=== PATIENT | female | born 1940 | race Caucasian/White ===

== ENCOUNTER 2019-08-03 14:07 | Emergency (ER) | payer MEDICARE ==
[~2019-08-03] VITALS: Ht 147.3 cm; Wt 59.0 kg
--- OUTSIDE RECORDS SUMMARY | 2019-08-03 14:10 | XMS REPORT | Continuity of Care Document ---
Author Author [facility] Organization [facility] Address [address] [place] [address] Care Team Providers Care [employer] Name Role Phone ELYSSA MARRERO Admphys ELYSSA MARRERO Attphys Allergies and Intolerances Code Code System Allergy Substance Type Reaction Severity Start Date End Date Status 067275 RXNorm Effexor Drug allergy (disorder) Vomit, Sick Severe Active 2670 RXNorm Codeine Drug allergy (disorder) Unknown Active Medications RxNorm Medication Dose Route Instructions Start Date End Date Status 635874 Acetaminophen 325 MG / Hydrocodone Bitartrate 10 MG Oral Tablet 1 tab oral orally every 6 hours as needed. Active ACETAMINOPHEN TABLET 650 MG ORAL BY MOUTH EVERY 4 HOURS NEEDED as needed. (ADULT MAXIMUM ACETAMINOPHEN DOSE PER 24 HOURS=4 GRAMS PAIN RATED 1-2, TEMP GREATER THAN 101F, HEADACHE DO NOT ADMINISTER WITHIN 4 HOURS OF HYDROCODONE/A PAP) 11/30/2018 Active 367482 Allopurinol 300 MG Oral Tablet 300 mg oral orally every day Active 458202 Amlodipine 10 MG Oral Tablet 10 MG ORAL BY MOUTH ONCE A DAY (DOCUMENT B/P AVOID GRAPEFRUIT PRODUCTS) Active 969290 aripiprazole 2 MG Oral Tablet 2 mg oral orally every day Active [facility] Gas Relief 80 milligrams oral orally 3 times per day as needed. Active Cyclobenzaprine Oral 10 mg oral orally every 12 hours as needed. Active 953351 Magnesium Oxide 400 MG Oral Tablet 800 MG ORAL BY MOUTH ONCE A DAY (Hold if with diarrhea) Active 334734 Metronidazole 500 MG Oral Tablet 500 mg oral orally 3 times per day Active 762214 Nystatin 564073 UNT/ML Topical Cream 1 applic topical topically 3 times per day Active ONDANSETRON ODT 4 MG ORAL BY MOUTH EVERY 6 HOURS NEEDED as needed. (FOR NAUSEA AND VOMITING) Active 766557 pantoprazole 40 MG Delayed Release Oral Tablet 40 MG ORAL BY MOUTH ONCE A DAY Active ProAir HFA Inhaler 90 mcg/actuation 1 puff inhalation inhaled every 4 to 6 hours as needed. 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 505782871 SNOMED-CT Malignant neoplasm of uterus 1967 Active 16680800 SNOMED-CT Hypertensive disorder U Active 409574646 SNOMED-CT Gastroesophageal reflux disease U Active 8514328 SNOMED-CT Arthritis U Active 20974097 SNOMED-CT Depressive disorder U Active 88408487 SNOMED-CT Anxiety U Active BACK PROBLEMS U Active Procedures Code Code System Procedure Date [address] Hysterectomy 1971 RIGHT ARM SURGERY U XR WRIST COMP MIN 3 VWS 07/11/2019 Results Radiology Results Order: XR WRIST COMP MIN 3 VWS* Exam Completion Date:07/11/2019 13:18 Procedure: XR WRIST COMP MIN 3 VWS , left Order Date: 07/11/2019 1:18 PM Ordering Provider: KAREN AMADOR Clinical Indication: [id number]: Pain Comparison: None Findings: No fracture, focal osseous destructi on, or malalignment. Moderate triscaphe and thumb CMC joint space narrowing and osteophyte formation is present. Soft tissues are unremarkable. IMPRE SSION: No acute osseous abnormality. 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 This final report was electronically signed by Dr Kimberly Sesay MD 07/11/2019 1:48 PM Dictated By: LARISA SESAY Date: 020 13:48 Social History Code Code System Social History Observation Description Dates Observed 452447065 SNOMED CT Current Smoking Status Unknown if ever smoked UNK AdministrativeGender Sex Assigned At Unknown Vital Signs Code Code System Vitals Value Date 8310-5 LOINC Body Temperature 98.1 [degF] 07/11/2019 8865-8 LOINC Pulse Rate 90 {beats}/min 07/11/2019 9279-1 LOINC Respiratory Rate 20 /min 07/11/2019 84397-4 LOINC O2% BldC Oximetry 97 % 07/11/2019 8480-6 LOINC BP Systolic 160 mm[Hg] 07/11/2019 8462-4 LOINC BP Diastolic 88 mm[Hg] 07/11/2019 8302-2 LOINC Height 65 [in_i] 07/11/2019 26373-2 LOINC Weight 58.96 kg 07/11/2019 3140-1 LOINC Body surface area Derived from formula 1.65 m2 07/11/2019 92362-2 LOINC BMI (Body Mass Index) 21.6 kg/m2 07/11/2019 Goals Section * No data in the system Health Concerns * No data in the system Encounter Diagnosis Date Code Code System Diagnosis Status S63.522A ICD10 SPRAIN RADIOCARPAL JNT LT WRIST INT Active Advance Directives Patient does NOT have Living Will Directive Type Effective Date [employer] Maintenance Chief Notes Supporting Document Name Address Phone No Directive Type specified 07/11/2019 12:23:12 PM Not Specified Not Specified Not Specified None No Patient does NOT have Living Will Directive Type Effective Date Airport Maintenance Chief Notes Supporting Document Name Address Phone No Directive Type specified 11/30/2018 5:24:56 PM Not Specified Not Specified Not Specified None No PT HAS NEITHER Directive Type Effective Date Airport Maintenance Chief Notes Supporting Document Name Address Phone No Directive Type specified 08/02/2012 9:27:07 PM Not Specified Not Specified Not Specified None No Family History * Family History Unknown Functional Status * No data in the system Immunizations Vaccine Code Code System Vaccine Name Date Status 09 CVX tetanus and diphtheria toxoids, adsorbed for adult use Completed Medical Equipment * No data in the system Mental Status * No data in the system Assessment and Plan Assessments * No data in the system Plan Of Treatment * No data in the system Pending Tests * No data in the system Hospital Discharge Instructions * Discharge Instructions 2* Discharge Diagnosis* Sprained wrist * Important Information* Consult your physician or return to the Emergency Department immediately if worse, if not better as expected, or if any problems arise. * Please understand that you have received care only on an emergency basis. If your condition does not improve, you should call your personal physician for follow-up care. If you do not have a physician, you may call the referred physician listed. * If you have questions about your care or these discharge instructions, you may call the Emergency Department. Please take your discharge paperwork with you to any follow-up appointments. * Follow-Up With:* Primary Care Physician * Orthopedics * Patient Teaching* Patient education provided * Pain Control * Activities Reason for Visit Reason for Visit Upper extremity injury
--- OUTSIDE RECORDS SUMMARY | 2019-08-03 14:10 | XMS REPORT ---
Author Author [facility] Address Unknown Phone Unavailable Care Team Providers Care Psychological Operations Officer Name Role Phone NESTOR MARRERO Unavailable Unavailable TAYLER SEGURA Unavailable Unavailable NABIL DUKES Unavailable Unavailable Problems This patient has no known problems. Allergies, Adverse Reactions, Alerts This patient has no known allergies or adverse reactions. Medications This patient has no known medications. Results Test Description Test Time Test Comments Text Results Atomic Results Result Comments XR WRIST COMP MIN 3 VWS 2019-07-11 13:55:06 Procedure: XR WRIST COMP MIN 3 VWS , leftOrder Date: 07/11/2019 1:18 PMOrdering Provider: KAREN DO HAREClinical Indication: [id number]: PainComparison: NoneFindings:No fracture, focal osseous destruction, or malalignment. Moderate triscaphe andthumb CMC joint space narrowing and osteophyte formation is present. 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.This final report was electronically signed by Dr Joseline Sesay MD 07/11/20191:48 PMDictated By: AZUCENA SESAYKDate: 07/11/2019 13:48 MAGNESIUM 2018-12-09 07:40:00 Magnesium (test code=MG) 1.3 mg/dl 1.6-2.6 add to earlier [id number] 05:15:00* Test Item Value Reference Range Comments Sodium (test code=NA) 142 mmol/l 137-145 Potassium (test code=K) 3.0 mmol/l 3.5-5.1 Chloride (test code=CL) 106 mmol/l 98-107 Calcium (test code=CALC) 7.2 mg/dl 8.5-10.1 CO2 (test code=CO2) 29 mmol/l 21-32 Glucose (test code=GLU) 144 mg/dl 74-106 BUN (test code=BUN) 7.0 mg/dl 7.0-18.0 Creatinine (test code=CREA) 1.4 mg/dl 0.5-1.3 T Protein (test code=TP) 6.5 gm/dl 6.4-8.2 Albumin (test code=ALB) 3.1 gm/dl 3.4-5.0 A/G Ratio (test code=AGRAT) 0.9 % 1.1-2.2 AST (SGOT) (test code=AST) 15 U/L 15-37 ALT (SGPT) (test code=ALT) 13 U/L 13-61 Alkaline Phos (test code=ALKP) 53 U/L 45-117 Total Bilirubin (test code=TBIL) 0.4 mg/dl 0.2-1.0 Globulin (test code=GLOBU) 3.4 gm/dl 2.3-3.5 Calcium, Corrected (test code=CALCCORR) 7.9 mg/dl 8.4-10.2 Various formulas exist for corrected serum calcium results, each yielding different values. This corrected result was based on the formula: Corrected Calcium=SerumCalcium + [0.8 * ( 4 - SerumAlbumin)] EGFR if (test code=EGFRAA) 47 mL/min/1.73m\\S\\2 EGFR if Non- (test code=EGFRNA) 39 mL/min/1.73m\\S\\2 Estimated Glomerular Filtration Rate (eGFR) Reference Intervals Decision Points for 18 years and older and average body mass: >=60 Does not exclude kidney disease. 30 - 59 Suggests moderate chronic kidney disease and indicates the need for further investigation including assessment of proteinuria and cardiovascular factors. < 30 Usually indicates a need for referral for assessment and management of chronic kidney failure. [id number] 05:51:00* Test Item Value Reference Range Comments Lipase (test code=LIPA) 541 U/L 73-393 [id number] 05:51:00* Test Item Value Reference Range Comments Sodium (test code=NA) 140 mmol/l 137-145 Potassium (test code=K) 3.6 mmol/l 3.5-5.1 Chloride (test code=CL) 105 mmol/l 98-107 Calcium (test code=CALC) 6.7 mg/dl 8.5-10.1 CO2 (test code=CO2) 29 mmol/l 21-32 Glucose (test code=GLU) 121 mg/dl 74-106 BUN (test code=BUN) 6.0 mg/dl 7.0-18.0 Creatinine (test code=CREA) 1.5 mg/dl 0.5-1.3 EGFR if (test code=EGFRAA) 43 mL/min/1.73m\\S\\2 EGFR if Non- (test code=EGFRNA) 36 mL/min/1.73m\\S\\2 Estimated Glomerular Filtration Rate (eGFR) Reference Intervals Decision Points for 18 years and older and average body mass: >=60 Does not exclude kidney disease. 30 - 59 Suggests moderate chronic kidney disease and indicates the need for further investigation including assessment of proteinuria and cardiovascular factors. < 30 Usually indicates a need for referral for assessment and management of chronic kidney failure. Critical values were called to Baylee by [id number] on 12/08/18 05:51 CDT. Resu lts were not read back.[id number] 16:04:00* Test Item Value Reference Range Comments Sodium (test code=NA) 143 mmol/l 137-145 Potassium (test code=K) 3.7 mmol/l 3.5-5.1 Chloride (test code=CL) 106 mmol/l 98-107 Calcium (test code=CALC) 6.7 mg/dl 8.5-10.1 CO2 (test code=CO2) 31 mmol/l 21-32 Glucose (test code=GLU) 111 mg/dl 74-106 BUN (test code=BUN) 8.0 mg/dl 7.0-18.0 Creatinine (test code=CREA) 1.7 mg/dl 0.5-1.3 EGFR if (test code=EGFRAA) 38 mL/min/1.73m\\S\\2 EGFR if Non- (test code=EGFRNA) 31 mL/min/1.73m\\S\\2 Estimated Glomerular Filtration Rate (eGFR) Reference Intervals Decision Points for 18 years and older and average body mass: >=60 Does not exclude kidney disease. 30 - 59 Suggests moderate chronic kidney disease and indicates the need for further investigation including assessment of proteinuria and cardiovascular factors. < 30 Usually indicates a need for referral for assessment and management of chronic kidney failure. Critical values were called to ASHLEY MARTINEZ RN K4 by [id number] on 12/07/18 16:0 4 CDT. Results were read back by ASHLEY MARTINEZ RN K4.[id number] 15:55:00* Test Item Value Reference Range Comments Magnesium (test code=MG) 0.9 mg/dl 1.6-2.6 [id number] 05:53:00* Test Item Value Reference Range Comments Sodium (test code=NA) 145 mmol/l 137-145 Potassium (test code=K) 2.7 mmol/l 3.5-5.1 Chloride (test code=CL) 105 mmol/l 98-107 Calcium (test code=CALC) 6.6 mg/dl 8.5-10.1 CO2 (test code=CO2) 31 mmol/l 21-32 Glucose (test code=GLU) 122 mg/dl 74-106 BUN (test code=BUN) 9.0 mg/dl 7.0-18.0 Creatinine (test code=CREA) 1.8 mg/dl 0.5-1.3 T Protein (test code=TP) 5.9 gm/dl 6.4-8.2 Albumin (test code=ALB) 3.1 gm/dl 3.4-5.0 A/G Ratio (test code=AGRAT) 1.1 % 1.1-2.2 AST (SGOT) (test code=AST) 15 U/L 15-37 ALT (SGPT) (test code=ALT) 12 U/L 13-61 Alkaline Phos (test code=ALKP) 45 U/L 45-117 Total Bilirubin (test code=TBIL) 0.3 mg/dl 0.2-1.0 Globulin (test code=GLOBU) 2.8 gm/dl 2.3-3.5 Calcium, Corrected (test code=CALCCORR) 7.3 mg/dl 8.4-10.2 Various formulas exist for corrected serum calcium results, each yielding different values. This corrected result was based on the formula: Corrected Calcium=SerumCalcium + [0.8 * ( 4 - SerumAlbumin)] EGFR if (test code=EGFRAA) 35 mL/min/1.73m\\S\\2 EGFR if Non- (test code=EGFRNA) 29 mL/min/1.73m\\S\\2 Estimated Glomerular Filtration Rate (eGFR) Reference Intervals Decision Points for 18 years and older and average body mass: >=60 Does not exclude kidney disease. 30 - 59 Suggests moderate chronic kidney disease and indicates the need for further investigation including assessment of proteinuria and cardiovascular factors. < 30 Usually indicates a need for referral for assessment and management of chronic kidney failure. Critical values were called to CLAY Stoddard/K4 by [id number] on 12/07/18 05:53 CDT. Resul ts were not read back.[id number] 05:49:00* Test Item Value Reference Range Comments Lipase (test code=LIPA) 660 U/L 73-393 [id number] 20:07:00* Test Item Value Reference Range Comments Sodium (test code=NA) 142 mmol/l 137-145 Potassium (test code=K) 3.0 mmol/l 3.5-5.1 Chloride (test code=CL) 104 mmol/l 98-107 Calcium (test code=CALC) 6.0 mg/dl 8.5-10.1 CO2 (test code=CO2) 31 mmol/l 21-32 Glucose (test code=GLU) 110 mg/dl 74-106 BUN (test code=BUN) 10.0 mg/dl 7.0-18.0 Creatinine (test code=CREA) 2.0 mg/dl 0.5-1.3 T Protein (test code=TP) 5.9 gm/dl 6.4-8.2 Albumin (test code=ALB) 3.1 gm/dl 3.4-5.0 A/G Ratio (test code=AGRAT) 1.1 % 1.1-2.2 AST (SGOT) (test code=AST) 18 U/L 15-37 ALT (SGPT) (test code=ALT) 12 U/L 13-61 Alkaline Phos (test code=ALKP) 43 U/L 45-117 Total Bilirubin (test code=TBIL) 0.3 mg/dl 0.2-1.0 Globulin (test code=GLOBU) 2.8 gm/dl 2.3-3.5 Calcium, Corrected (test code=CALCCORR) 6.7 mg/dl 8.4-10.2 Various formulas exist for corrected serum calcium results, each yielding different values. This corrected result was based on the formula: Corrected Calcium=SerumCalcium + [0.8 * ( 4 - SerumAlbumin)] EGFR if (test code=EGFRAA) 31 mL/min/1.73m\\S\\2 EGFR if Non- (test code=EGFRNA) 26 mL/min/1.73m\\S\\2 Estimated Glomerular Filtration Rate (eGFR) Reference Intervals Decision Points for 18 years and older and average body mass: >=60 Does not exclude kidney disease. 30 - 59 Suggests moderate chronic kidney disease and indicates the need for further investigation including assessment of proteinuria and cardiovascular factors. < 30 Usually indicates a need for referral for assessment and management of chronic kidney failure. Critical values were called to Ifeanyi by [id number] on 12/06/18 20:07 CDT. Resu lts were not read back.OCCULT BLOOD (TWO SPECIMENS)2018-12-06 05:57:00* Test Item Value Reference Range Comments Occult Blood (test code=OB) Negative Negative Occult Blood 2 Specimens (test code=OB2) No Specimen Received Negative If a specimen is collected by a nurse, then you MUST fill out the Collecte d and Collected By gupta [id number] 05:18:00* Test Item Value Reference Range Comments Sodium (test code=NA) 143 mmol/l 137-145 Potassium (test code=K) 3.1 mmol/l 3.5-5.1 Chloride (test code=CL) 104 mmol/l 98-107 Calcium (test code=CALC) 6.1 mg/dl 8.5-10.1 CO2 (test code=CO2) 32 mmol/l 21-32 Glucose (test code=GLU) 113 mg/dl 74-106 BUN (test code=BUN) 13.0 mg/dl 7.0-18.0 Creatinine (test code=CREA) 2.2 mg/dl 0.5-1.3 EGFR if (test code=EGFRAA) 28 mL/min/1.73m\\S\\2 EGFR if Non- (test code=EGFRNA) 23 mL/min/1.73m\\S\\2 Estimated Glomerular Filtration Rate (eGFR) Reference Intervals Decision Points for 18 years and older and average body mass: >=60 Does not exclude kidney disease. 30 - 59 Suggests moderate chronic kidney disease and indicates the need for further investigation including assessment of proteinuria and cardiovascular factors. < 30 Usually indicates a need for referral for assessment and management of chronic kidney failure. [id number] 05:18:00* Test Item Value Reference Range Comments Lipase (test code=LIPA) 531 U/L 73-393 CBC WITH AUTO [id number] 05:16:00* Test Item Value Reference Range Comments WBC (test code=WBC) 10.29 10\\S\\3/ul 4.80-10.80 RBC (test code=RBC) 3.19 10\\S\\6/ul 4.20-5.40 Hemoglobin (test code=HGB) 10.2 gm/dl 12.0-14.0 Hematocrit (test code=HCT) 30.7 % 37.0-47.0 MCV (test code=MCV) 96.2 fL 81.0-99.0 MCH (test code=MCH) 32.0 pg 27.0-31.0 MCHC (test code=MCHC) 33.2 gm/dl 33.0-37.0 RDW (test code=RDWVC) 13.3 % 11.5-14.5 Platelet (test code=PLT) 199 10\\S\\3/ul 130-400 MPV (test code=MPV) 11.5 fL 7.4-10.4 "NOT MEASURED" RESULTS ARE DISPLAYED WHEN THE INSTRUMENT HAS A SUPPRESSED OR UNREPORTABLE RESULT. THIS WILL MOST OFTEN HAPPEN WITH THE MPV WHEN THERE IS AN ABNORMAL PLATELET DISTRIBUTION DUE TO A CR ITICAL LOW VALUE OR PLATELET CLUMPING. THE RDW MAY BE SUPPRESSED IF THERE ARE MULTIPLE PEAKS PRESENT ON THE RBC HISTOGRAM. IN THIS CASE, A MANUAL REVIEW OF THE SLIDE WILL BE PERFORMED, AND RBC MORPHOLOGY WILL BE NOTED ON THE REPORT. NE% (test code=NE) 66.2 % 42.0-75.0 LY% (test code=LY) 23.4 % 13.0-42.0 MO% (test code=MO) 6.9 % 4.0-14.0 EO% (test code=EO) 2.5 % 1.0-5.0 BA% (test code=BA) 0.5 % 0.0-3.0 IG% (test code=IG%) 0.5 % 0.0-0.4 [id number] 20:54:00* Test Item Value Reference Range Comments Magnesium (test code=MG) 0.9 mg/dl 1.6-2.6 [id number] 19:39:00* Test Item Value Reference Range Comments Potassium (test code=K) 3.6 mmol/l 3.5-5.1 [id number] 08:07:00* Test Item Value Reference Range Comments Sodium (test code=NA) 141 mmol/l 137-145 Potassium (test code=K) 2.6 mmol/l 3.5-5.1 Chloride (test code=CL) 103 mmol/l 98-107 Calcium (test code=CALC) 7.0 mg/dl 8.5-10.1 CO2 (test code=CO2) 31 mmol/l 21-32 Glucose (test code=GLU) 109 mg/dl 74-106 BUN (test code=BUN) 18.0 mg/dl 7.0-18.0 Creatinine (test code=CREA) 2.4 mg/dl 0.5-1.3 EGFR if (test code=EGFRAA) 25 mL/min/1.73m\\S\\2 EGFR if Non- (test code=EGFRNA) 21 mL/min/1.73m\\S\\2 Estimated Glomerular Filtration Rate (eGFR) Reference Intervals Decision Points for 18 years and older and average body mass: >=60 Does not exclude kidney disease. 30 - 59 Suggests moderate chronic kidney disease and indicates the need for further investigation including assessment of proteinuria and cardiovascular factors. < 30 Usually indicates a need for referral for assessment and management of chronic kidney failure. Critical values were called to NATASHA LAWRENCE RN K4 by [id number] on 12/05/18 08:0 7 CDT. Results were read back by NATASHA LAWRENCE RN K4.[id number] 07:53:00 * Test Item Value Reference Range Comments Lipase (test code=LIPA) 618 U/L 73-393 [id number] 05:10:00* Test Item Value Reference Range Comments Lipase (test code=LIPA) 562 U/L 73-393 [id number] 05:10:00* Test Item Value Reference Range Comments Sodium (test code=NA) 148 mmol/l 137-145 Potassium (test code=K) 3.7 mmol/l 3.5-5.1 Chloride (test code=CL) 113 mmol/l 98-107 Calcium (test code=CALC) 7.8 mg/dl 8.5-10.1 CO2 (test code=CO2) 26 mmol/l 21-32 Glucose (test code=GLU) 156 mg/dl 74-106 BUN (test code=BUN) 35.0 mg/dl 7.0-18.0 Creatinine (test code=CREA) 3.4 mg/dl 0.5-1.3 EGFR if (test code=EGFRAA) 17 mL/min/1.73m\\S\\2 EGFR if Non- (test code=EGFRNA) 14 mL/min/1.73m\\S\\2 Estimated Glomerular Filtration Rate (eGFR) Reference Intervals Decision Points for 18 years and older and average body mass: >=60 Does not exclude kidney disease. 30 - 59 Suggests moderate chronic kidney disease and indicates the need for further investigation including assessment of proteinuria and cardiovascular factors. < 30 Usually indicates a need for referral for assessment and management of chronic kidney failure. SP PERC PLMNT MIDLINE NO PORT > 5 y/o W/[id number] 14:22:14poMARY nguyễn with Dr. Jenkins 12/03/18, 1310Procedure: SP PERC PLMNT MIDLINE NO PORT > 5 y/o W/IMAGINGOrder Date: 12/03/2018 1:11 PMOrdering Provider: DANIEL DO .Clinical Indication: Vascular accessTechnique:The patient was placed supine on the exam table with the left arm abducted. Anultrasound was performed to locate a proper venous access site. The upper armwas prepped and draped in the usual sterile fashion. Utilizing 1% lidocainesolution, the skin and subcutaneous tissues overlying the left cephalic veinwere anesthetized. The vein is patent. Then, under ultrasound guidance, thevein was punctured with a micropuncture nee dle and a 0.018 guidewire wasadvanced into the selected vessel. The needle was removed and the 20 gaugePowerglide catheter was advanced over the wire into the left cephalic vein. Thewire was removed. The catheter was secured to the skin in the usual fashion.Candles Pourer images were recorded and stored in the medic al record fordocumentation. The patient tolerated the procedure well and there were noimmediate complications.Impression:1. Successful upper extremity vascula r access.This final report was electronically signed by Dr Bogdan Teran MD 11/242:15 PMDictated By: BOGDAN TERAN.Date: 12/03/2018 14:15LIPASE 2018-12-03 05:17:00* Test Item Value Reference Range Comments Lipase (test code=LIPA) 652 U/L 73-393 [id number] 05:17:00* Test Item Value Reference Range Comments Sodium (test code=NA) 148 mmol/l 137-145 Potassium (test code=K) 5.0 mmol/l 3.5-5.1 Chloride (test code=CL) 119 mmol/l 98-107 Calcium (test code=CALC) 8.2 mg/dl 8.5-10.1 CO2 (test code=CO2) 17 mmol/l 21-32 Glucose (test code=GLU) 96 mg/dl 74-106 BUN (test code=BUN) 52.0 mg/dl 7.0-18.0 Creatinine (test code=CREA) 4.5 mg/dl 0.5-1.3 EGFR if (test code=EGFRAA) 12 mL/min/1.73m\\S\\2 EGFR if Non- (test code=EGFRNA) 10 mL/min/1.73m\\S\\2 Estimated Glomerular Filtration Rate (eGFR) Reference Intervals Decision Points for 18 years and older and average body mass: >=60 Does not exclude kidney disease. 30 - 59 Suggests moderate chronic kidney disease and indicates the need for further investigation including assessment of proteinuria and cardiovascular factors. < 30 Usually indicates a need for referral for assessment and management of chronic kidney failure. [id number] 05:05:00* Test Item Value Reference Range Comments Sodium (test code=NA) 145 mmol/l 137-145 Potassium (test code=K) 4.6 mmol/l 3.5-5.1 Chloride (test code=CL) 114 mmol/l 98-107 Calcium (test code=CALC) 8.4 mg/dl 8.5-10.1 CO2 (test code=CO2) 23 mmol/l 21-32 Glucose (test code=GLU) 103 mg/dl 74-106 BUN (test code=BUN) 74.0 mg/dl 7.0-18.0 Creatinine (test code=CREA) 6.1 mg/dl 0.5-1.3 T Protein (test code=TP) 6.7 gm/dl 6.4-8.2 Albumin (test code=ALB) 3.4 gm/dl 3.4-5.0 A/G Ratio (test code=AGRAT) 1.0 % 1.1-2.2 AST (SGOT) (test code=AST) 16 U/L 15-37 ALT (SGPT) (test code=ALT) 11 U/L 13-61 Alkaline Phos (test code=ALKP) 56 U/L 45-117 Total Bilirubin (test code=TBIL) 0.2 mg/dl 0.2-1.0 Globulin (test code=GLOBU) 3.3 gm/dl 2.3-3.5 Calcium, Corrected (test code=CALCCORR) 8.9 mg/dl 8.4-10.2 Various formulas exist for corrected serum calcium results, each yielding different values. This corrected result was based on the formula: Corrected Calcium=SerumCalcium + [0.8 * ( 4 - SerumAlbumin)] EGFR if (test code=EGFRAA) 9 mL/min/1.73m\\S\\2 EGFR if Non- (test code=EGFRNA) 7 mL/min/1.73m\\S\\2 Estimated Glomerular Filtration Rate (eGFR) Reference Intervals Decision Points for 18 years and older and average body mass: >=60 Does not exclude kidney disease. 30 - 59 Suggests moderate chronic kidney disease and indicates the need for further investigation including assessment of proteinuria and cardiovascular factors. < 30 Usually indicates a need for referral for assessment and management of chronic kidney failure. [id number] 05:05:00* Test Item Value Reference Range Comments Lipase (test code=LIPA) 784 U/L 73-393 CORONARY [id number] 05:05:00* Test Item Value Reference Range Comments Triglycerides (test code=TRIG) 125 mg/dl 0-149 Trig. Interpretation Guide: Normal: < 150 mg/dl Borderline High: 150 - 199 mg/dl High: 200 - 499 mg/dl Very High: >=500 mg/dl Cholesterol (test code=CHOL) 178 mg/dl 0-200 HDL (test code=HDL) 49 mg/dl 35-86 dLDL (test code=DILDL) 115 mg/dl 0-99 Direct LDL Intrepretations: Optimal: <100 mg/dl Suspect: 100 - 129 mg/dl Borderline: 130 - 159 mg/dl High: 160 - 189 mg/dl Very High: >190 mg/dl Risk Factor (test code=RFACT) 3.6 0.0-4.4 Risk Factor Men Women Risk Factor 3.4 3.3 1/2 Average 5.0 4.4 Average 9.6 7.1 2X Average 24.0 11.0 3X Average vLDL (test code=VLDL) 25 mg/dl 20-50 GLYCOSALATED [id number] 07:02:00* Test Item Value Reference Range Comments Hemoglobin A1C (test code=GLYCO) 6.2 % 4.2-6.3 Mean Plasma Glucose (test code=MPG) 143 mg/dl 90-180 WHEN TEST RESULTS FOR A1C EXCEED 14.0, THE LINEAR LIMIT OF THE INSTRUMENT, THE CALCULATED RESULT FOR THE MEAN GLUCOSE IS NOT RELIABLE. CBC WITH AUTO [id number] 05:20:00* Test Item Value Reference Range Comments WBC (test code=WBC) 8.43 10\\S\\3/ul 4.80-10.80 RBC (test code=RBC) 3.63 10\\S\\6/ul 4.20-5.40 Hemoglobin (test code=HGB) 11.5 gm/dl 12.0-14.0 Hematocrit (test code=HCT) 34.1 % 37.0-47.0 MCV (test code=MCV) 93.9 fL 81.0-99.0 MCH (test code=MCH) 31.7 pg 27.0-31.0 MCHC (test code=MCHC) 33.7 gm/dl 33.0-37.0 RDW (test code=RDWVC) 13.4 % 11.5-14.5 Platelet (test code=PLT) 265 10\\S\\3/ul 130-400 MPV (test code=MPV) 12.2 fL 7.4-10.4 "NOT MEASURED" RESULTS ARE DISPLAYED WHEN THE INSTRUMENT HAS A SUPPRESSED OR UNREPORTABLE RESULT. THIS WILL MOST OFTEN HAPPEN WITH THE MPV WHEN THERE IS AN ABNORMAL PLATELET DISTRIBUTION DUE TO A CR ITICAL LOW VALUE OR PLATELET CLUMPING. THE RDW MAY BE SUPPRESSED IF THERE ARE MULTIPLE PEAKS PRESENT ON THE RBC HISTOGRAM. IN THIS CASE, A MANUAL REVIEW OF THE SLIDE WILL BE PERFORMED, AND RBC MORPHOLOGY WILL BE NOTED ON THE REPORT. NE% (test code=NE) 64.5 % 42.0-75.0 LY% (test code=LY) 27.0 % 13.0-42.0 MO% (test code=MO) 5.5 % 4.0-14.0 EO% (test code=EO) 1.9 % 1.0-5.0 BA% (test code=BA) 0.7 % 0.0-3.0 IG% (test code=IG%) 0.4 % 0.0-0.4 [id number] 05:20:00* Test Item Value Reference Range Comments Sodium (test code=NA) 139 mmol/l 137-145 Potassium (test code=K) 4.9 mmol/l 3.5-5.1 Chloride (test code=CL) 104 mmol/l 98-107 Calcium (test code=CALC) 8.5 mg/dl 8.5-10.1 CO2 (test code=CO2) 25 mmol/l 21-32 Glucose (test code=GLU) 81 mg/dl 74-106 BUN (test code=BUN) 109.0 mg/dl 7.0-18.0 Creatinine (test code=CREA) 8.4 mg/dl 0.5-1.3 EGFR if (test code=EGFRAA) 6 mL/min/1.73m\\S\\2 EGFR if Non- (test code=EGFRNA) 5 mL/min/1.73m\\S\\2 Estimated Glomerular Filtration Rate (eGFR) Reference Intervals Decision Points for 18 years and older and average body mass: >=60 Does not exclude kidney disease. 30 - 59 Suggests moderate chronic kidney disease and indicates the need for further investigation including assessment of proteinuria and cardiovascular factors. < 30 Usually indicates a need for referral for assessment and management of chronic kidney failure. [id number] 05:20:00* Test Item Value Reference Range Comments Magnesium (test code=MG) 2.1 mg/dl 1.6-2.6 [id number] 05:20:00* Test Item Value Reference Range Comments Lipase (test code=LIPA) 496 U/L 73-393 URINALYSIS WITH [id number] 19:00:00* Test Item Value Reference Range Comments Color (test code=UCOLR) STRAW Clarity (test code=UCLAR) CLEAR Glucose (test code=UGLUC) NEGATIVE NEGATIVE Bilirubin (test code=UBILI) NEGATIVE NEGATIVE Ketones (test code=UKET) NEGATIVE NEGATIVE Specific [place] (test code=USPGR) 1.010 1.005-1.030 Blood (test code=UBLD) TRACE-LYSED NEGATIVE PH (test code=UPH) 5.5 4.5-8.0 Protein (test code=UPROT) NEGATIVE NEGATIVE Urobilinogen (test code=U UROB) 0.2 >0.2 Nitrite (test code=UNITR) NEGATIVE NEGATIVE Leukocyte Esterase (test code=ULEUK) NEGATIVE NEGATIVE WBC (test code=WBCUR) 5-10 0-5 RBC (test code=RBCUR) 0-5 0-5 Epithial Cells (test code=U EPI) 30-40 0-10 Mucous (test code=UMUC) None Seen None Seen Bacteria (test code=UBACT) Trace None Seen,Trace CT ABD/ PELVIS W/O CON ([facility])2018-11-30 18:26:28Procedure: CT ABD/ PELVIS W/O CON ([facility])Order Date: 11/30/2018 5:37 PMOrdering Provider: DESHAWN MORRISSEYTClinical Indication: [id number]: Abdominal painComparison: 2012TECHNIQUE:CT of the abdomen and pelvis WITHOUT intravenous contrast. The abdomen andpelvis were scanned utilizing a multidetector helical scanner from the diaphragmto the lesser trochanter. Coronal and sagittal reformations were obtained.This exam was performed according to the our departmental dose-optimiz ationprogram which includes automated exposure control, adjustment of the mA and /orkV according to patient size and/or use of iterative reconstruction technique s.DISCUSSION:ABSENCE OF INTRAVENOUS CONTRAST DECREASES SENSITIVITY FOR DETECTION OF FOCALLESIONS AND VASCULAR PATHOLOGY.LOWER THORAX: Normal.HEPATOBILIARY: No f ocal hepatic lesions. No biliary ductal dilatation.SPLEEN: No splenomegaly.PANC REAS: No focal masses or ductal dilatation.ADRENALS: No adrenal nodules.KIDNEYS/ URETERS: No hydronephrosis, stones, or solid mass lesions. Subcentimeterhyperden se focus is present in the anterior aspect of the left kidney and ispartially ex ophytic. Additional low density foci are present in the bilateralkidneys.PELVIC ORGANS/BLADDER: Uterus is surgically absent.PERITONEUM / RETROPERITONEUM: No eligio e air or fluid.LYMPH NODES: No lymphadenopathy.VESSELS: Unremarkable.GI TRACT: T here is a small sliding-type hiatal hernia. Small bowel isunremarkable in appear ance. There is high-density school in the colon. 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 This could be furtherassessed with outpatient ultrasound.Colonic diverticulosis without di verticulitis.High density stool in the colon probably related to a component of constipation.This final report was electronically signed by Dr Joseline Sesay MD 11/30/20186:20 PMDictated By: AZUCENA SESAYKDate: 11/30/2018 18:[id number] 17:47:00* Test Item Value Reference Range Comments Lipase (test code=LIPA) 619 U/L 73-393 HEPATIC FUNCTION PANEL (LIVER)2018-11-30 17:47:00* Test Item Value Reference Range Comments T Protein (test code=TP) 8.3 gm/dl 6.4-8.2 Albumin (test code=ALB) 4.2 gm/dl 3.4-5.0 AST (SGOT) (test code=AST) 14 U/L 15-37 ALT (SGPT) (test code=ALT) 17 U/L 13-61 Alkaline Phos (test code=ALKP) 72 U/L 45-117 Total Bilirubin (test code=TBIL) 0.4 mg/dl 0.2-1.0 Direct Bilirubin (test code=DBIL) 0.1 mg/dl 0.0-0.3 Indirect Bilirubin (test code=IBIL) 0.3 mg/dl 0.0-1.1 STAT LAB CHEM [id number] 17:31:00* Test Item Value Reference Range Comments Sodium (test code=NA) 130 mmol/l 138-146 Potassium (test code=K) 3.4 mmol/l 3.5-4.9 Chloride (test code=CL) 91 mmol/l 98-109 IONIZED CALCIUM (test code=ICA) 1.04 CO2 (test code=CO2) 24 mmol/l 24-29 Glucose (test code=GLU) 127 mg/dl 70-105 BUN (test code=BUN) 135 mg/dl 6-17 Creatinine (test code=CREA) 11.9 mg/dl 0.6-1.3 STAT LAB CBC WITH AUTO [id number] 17:30:00* Test Item Value Reference Range Comments WBC (test code=WBC) 11.99 10\\S\\3/ul 4.80-10.80 RBC (test code=RBC) 4.13 10\\S\\6/ul 4.20-5.40 Hemoglobin (test code=HGB) 12.9 gm/dl 12.0-14.0 Hematocrit (test code=HCT) 38.7 % 37.0-47.0 MCV (test code=MCV) 93.7 fL 81.0-99.0 MCH (test code=MCH) 31.2 pg 27.0-31.0 MCHC (test code=MCHC) 33.3 gm/dl 33.0-37.0 Platelet (test code=PLT) 352 10\\S\\3/ul 130-400 RDW (test code=RDWVC) 13.6 % 11.5-14.5 MPV (test code=MPV) 11.5 fL 7.4-10.4 NE% (test code=NE) 67.7 % 42.0-75.0 LY% (test code=LY) 26.6 % 13.0-42.0 MO% (test code=MO) 3.8 % 4.0-14.0 EO% (test code=EO) 0.8 % 1.0-3.0 BA% (test code=BA) 0.8 % 1.0-3.0 IG% (test code=IG%) 0.3 % 0.0-0.4 GLYCOSALATED [id number] 19:17:00* Test Item Value Reference Range Comments Hemoglobin A1C (test code=GLYCO) 6.0 % 4.2-6.3 Mean Plasma Glucose (test code=MPG) 136 mg/dl 90-180 WHEN TEST RESULTS FOR A1C EXCEED 14.0, THE LINEAR LIMIT OF THE INSTRUMENT, THE CALCULATED RESULT FOR THE MEAN GLUCOSE IS NOT RELIABLE. URIC [id number] 17:23:00* Test Item Value Reference Range Comments Uric Acid (test code=URICA) 3.0 mg/dl 2.6-6.0 T3 [id number] 17:23:00* Test Item Value Reference Range Comments T3 Uptake (test code=T3UP) 37.0 % uptake 30.0-39.0 [id number] 17:23:00* Test Item Value Reference Range Comments Sodium (test code=NA) 143 mmol/l 137-145 Potassium (test code=K) 4.0 mmol/l 3.5-5.1 Chloride (test code=CL) 109 mmol/l 98-107 Calcium (test code=CALC) 9.5 mg/dl 8.5-10.1 CO2 (test code=CO2) 28 mmol/l 21-32 Glucose (test code=GLU) 99 mg/dl 74-106 BUN (test code=BUN) 14.0 mg/dl 7.0-18.0 Creatinine (test code=CREA) 1.0 mg/dl 0.5-1.3 T Protein (test code=TP) 7.8 gm/dl 6.4-8.2 Albumin (test code=ALB) 4.1 gm/dl 3.4-5.0 A/G Ratio (test code=AGRAT) 1.1 % 1.1-2.2 AST (SGOT) (test code=AST) 23 U/L 15-37 ALT (SGPT) (test code=ALT) 25 U/L 13-61 Alkaline Phos (test code=ALKP) 76 U/L 45-117 Total Bilirubin (test code=TBIL) 0.3 mg/dl 0.2-1.0 Globulin (test code=GLOBU) 3.7 gm/dl 2.3-3.5 Calcium, Corrected (test code=CALCCORR) 9.4 mg/dl 8.4-10.2 Various formulas exist for corrected serum calcium results, each yielding different values. This corrected result was based on the formula: Corrected Calcium=SerumCalcium + [0.8 * ( 4 - SerumAlbumin)] EGFR if (test code=EGFRAA) >60 mL/min/1.73m\\S\\2 EGFR if Non- (test code=EGFRNA) 57 mL/min/1.73m\\S\\2 Estimated Glomerular Filtration Rate (eGFR) Reference Intervals Decision Points for 18 years and older and average body mass: >=60 Does not exclude kidney disease. 30 - 59 Suggests moderate chronic kidney disease and indicates the need for further investigation including assessment of proteinuria and cardiovascular factors. < 30 Usually indicates a need for referral for assessment and management of chronic kidney failure. TSH (Ultra Sensitive)2018-07-22 17:23:00* Test Item Value Reference Range Comments TSH (test code=TSH) 3.93 mIU/L 0.35-3.74 CORONARY [id number] 17:23:00* Test Item Value Reference Range Comments Triglycerides (test code=TRIG) 200 mg/dl 0-149 Trig. Interpretation Guide: Normal: < 150 mg/dl Borderline High: 150 - 199 mg/dl High: 200 - 499 mg/dl Very High: >=500 mg/dl Cholesterol (test code=CHOL) 289 mg/dl 0-200 HDL (test code=HDL) 61 mg/dl 35-86 dLDL (test code=DILDL) 200 mg/dl 0-99 Direct LDL Intrepretations: Optimal: <100 mg/dl Suspect: 100 - 129 mg/dl Borderline: 130 - 159 mg/dl High: 160 - 189 mg/dl Very High: >190 mg/dl Risk Factor (test code=RFACT) 4.7 0.0-4.4 Risk Factor Men Women Risk Factor 3.4 3.3 1/2 Average 5.0 4.4 Average 9.6 7.1 2X Average 24.0 11.0 3X Average vLDL (test code=VLDL) 40 mg/dl 20-50 B12, [id number] 17:23:00* Test Item Value Reference Range Comments B12 (test code=B12) 441 pg/ml 193-986 CBC (HEMOGRAM ONLY)2018-07-22 16:15:00* Test Item Value Reference Range Comments WBC (test code=WBC) 8.75 10\\S\\3/ul 4.80-10.80 RBC (test code=RBC) 4.24 10\\S\\6/ul 4.20-5.40 Hemoglobin (test code=HGB) 13.4 gm/dl 12.0-14.0 Hematocrit (test code=HCT) 41.5 % 37.0-47.0 MCV (test code=MCV) 97.9 fL 81.0-99.0 MCH (test code=MCH) 31.6 pg 27.0-31.0 MCHC (test code=MCHC) 32.3 gm/dl 33.0-37.0 RDW (test code=RDWVC) 14.4 % 11.5-14.5 Platelet (test code=PLT) 298 10\\S\\3/ul 130-400 MPV (test code=MPV) 10.9 fL 7.4-10.4 "NOT MEASURED" RESULTS ARE DISPLAYED WHEN THE INSTRUMENT HAS A SUPPRESSED OR UNREPORTABLE RESULT. THIS WILL MOST OFTEN HAPPEN WITH THE MPV WHEN THERE IS AN ABNORMAL PLATELET DISTRIBUTION DUE TO A CR ITICAL LOW VALUE OR PLATELET CLUMPING. THE RDW MAY BE SUPPRESSED IF THERE ARE MULTIPLE PEAKS PRESENT ON THE RBC HISTOGRAM. IN THIS CASE, A MANUAL REVIEW OF THE SLIDE WILL BE PERFORMED, AND RBC MORPHOLOGY WILL BE NOTED ON THE REPORT.
--- OUTSIDE RECORDS SUMMARY | 2019-08-03 14:10 | XMS REPORT | Continuity of Care Document ---
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 Name Role Phone DR NABIL DUKES [facility] NAB[facility] Admission Diagnosis Code Admission Diagnosis Date 50039612 Severe recurrent major depression without psychotic features Social History Element Description Code Description Smoking Status Code System Start Date End Date Smoking Status 6325659 Former smoker SNOMED-CT Problems Code Code System Problem Name Start Date End Date Status 451735514 SNOMED-CT 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 pain Active 069616 Allopurinol 300 MG Oral Tablet 300 milligram oral orally every day Active 737529 Amlodipine 10 MG Oral Tablet 10 milligram oral orally every day Active [facility] Gas Relief 80 milligrams oral orally 3 times per day as needed. gas pains Active 094558 Cyclobenzaprine hydrochloride 5 MG Oral Tablet 5 milligram oral orally 3 times per day as needed. (5 days) (rib pain) Active Cyclobenzaprine Oral 10 milligram oral orally every 12 hours as needed. muscle spasm Active 073706 Esomeprazole 40 MG Delayed Release Oral Capsule 40 milligram oral orally every day Active Fluoxetine Oral 80 milligram oral orally every day Active 131893 Ibuprofen 800 MG Oral Tablet 800 milligram oral orally 3 times per day (7 days) Active 544154 Ondansetron 4 MG Oral Tablet 4 milligram oral orally 3 times per day as needed. nausea and vomiting Active 905088 Prednisone 20 MG Oral Tablet 20 milligram oral orally every day (5 days) (for 5 days) Active ProAir HFA Inhaler 90 mcg/actuation 1 puff Inhalation inhaled every 4 to 6 hours as needed. (administer with spacer) shortness of breath or wheezing Active 28496 Ramipril 10 milligram oral orally 2 times per day Active Allergies Code Code System Allergy Substance Type Reaction Severity Start Date End Date Status 992589 RXNorm Effexor Drug allergy Vomit, Sick Severe Active RXNorm No Known Drug Allergies Drug allergy Unknown 08/23/2013 09/02/2013 Inactive Results Laboratory Results Order: A1C GLYCOSYLATED HEMOGLOBIN Specimen Source: BLOOD Body Site: [facility] Test Result Flag Range Unit Date 5922 1Hemoglobin A1c/Hemoglobin.total:MFr:Pt:Bld:Qn 6.0 A 4.2-6.3 % 07/22/2018 15:40 1Mean Plasma Glucose 136 90-180 mg/dl 07/22/2018 15:40 Note: WHEN TEST RESULTS FOR A1C EXCEED 14.0, THE LINEAR LIMIT OF THE INSTRUMENT, THE CALCULATED RESULT FOR THE MEAN GLUCOSE IS NOT RELIABLE. * Performing Lab Footnotes:* [address] [place] [address] [id number] - [address] [place] [address] [facility] - MD: DIRECTOR IAN HOFFMAN Order: CBC - HEMOGRAM ONLY Specimen Source: BLOOD Body Site: [facility] Test Result Flag Range Unit Date 01568-6 1Leukocytes^^corrected for nucleated erythrocytes:NCnc:Pt:Bld:Qn:Automated count 8.75 4.80-10.80 10^3/ul 07/22/2018 15:40 789-8 1Erythrocytes:NCnc:Pt:Bld:Qn:Automated count 4.24 4.20-5.40 10^6/ul 07/22/2018 15:40 718-7 1Hemoglobin:MCnc:Pt:Bld:Qn 13.4 12.0-14.0 gm/dl 07/22/2018 15:40 4544-3 1Hematocrit:VFr:Pt:Bld:Qn:Automated count 41.5 37.0-47.0 % 07/22/2018 15:40 787-2 1Erythrocyte mean corpuscular volume:EntVol:Pt:RBC:Qn:Automated count 97.9 81.0-99.0 fL 07/22/2018 15:40 785-6 1Erythrocyte mean corpuscular hemoglobin:EntMass:Pt:RBC:Qn:Automated count 31.6 H 27.0-31.0 pg 07/22/2018 15:40 786-4 1Erythrocyte mean corpuscular hemoglobin concentration:MCnc:Pt:RBC:Qn:Automated count 32.3 L 33.0-37.0 gm/dl 07/22/2018 15:40 788-0 1Erythrocyte distribution width:Ratio:Pt:RBC:Qn:Automated count 14.4 11.5-14.5 % 07/22/2018 15:40 777-3 1Platelets:NCnc:Pt:Bld:Qn:Automated count 298 130-400 10^3/ul 07/22/2018 15:40 42113-3 1Platelet mean volume:EntVol:Pt:Bld:Qn:Automated count 10.9 A 7.4-10.4 fL 07/22/2018 15:40 Note: 'NOT MEASURED' RESULTS ARE DISPLAYED WHEN THE INSTRUMENT HAS A SUPPRESSED OR UNREPORTABLE RESULT. THIS WILL MOST OFTEN HAPPEN WITH THE MPV WHEN THERE IS AN ABNORMAL PLATELET DISTRIBUTION DUE TO A CRITICAL LOW VALUE OR PLATELET CLUMPING. THE RDW MAY BE SUPPRESSED IF THERE ARE MULTIPLE PEAKS PRESENT ON THE RBC HISTOGRAM. IN THIS CASE, A MANUAL REVIEW OF THE SLIDE WILL BE PERFORMED, AND RBC MORPHOLOGY WILL BE NOTED ON THE REPORT. * Performing Lab Footnotes:* [address] [place] [address] - [id number] - [address] [facility] [address] [place] [address] [facility] - : DIRECTOR IAN HOFFMAN Order: CMP COMPREHENSIVE METABOLIC PANEL Specimen Source: BLOOD Body Site: LOINC Test Result Flag Range Unit Date 2950-06 1Sodium:SCnc:Pt:Ser/Plas:Qn 143 137-145 mmol/l 07/22/2018 15:40 2823-3 1Potassium:SCnc:Pt:Ser/Plas:Qn 4 3.5-5.1 mmol/l 07/22/2018 15:40 5-0 1Chloride:SCnc:Pt:Ser/Plas:Qn 109 H 98-107 mmol/l 07/22/2018 15:40 31653-7 1Calcium:MCnc:Pt:Ser/Plas:Qn 9.5 8.5-10.1 mg/dl 07/22/2018 15:40 2028-9 1Carbon dioxide:SCnc:Pt:Ser/Plas:Qn 28 21-32 mmol/l 07/22/2018 15:40 2350-7 1Glucose:MCnc:Pt:Urine:Qn 99 74-106 mg/dl 07/22/2018 15:40 3094-0 1Urea nitrogen:MCnc:Pt:Ser/Plas:Qn 14 7.0-18.0 mg/dl 07/22/2018 15:40 2160-0 1Creatinine:MCnc:Pt:Ser/Plas:Qn 1 0.5-1.3 mg/dl 07/22/2018 15:40 2885-2 1Protein:MCnc:Pt:Ser/Plas:Qn 7.8 6.4-8.2 gm/dl 07/22/2018 15:40 1751-7 1Albumin:MCnc:Pt:Ser/Plas:Qn 4.1 3.4-5.0 gm/dl 07/22/2018 15:40 1A/G Ratio 1.1 1.1-2.2 % 07/22/2018 15:40 1920-8 1Aspartate aminotransferase:CCnc:Pt:Ser/Plas:Qn 23 15-37 U/L 07/22/2018 15:40 1742-6 1Alanine aminotransferase:CCnc:Pt:Ser/Plas:Qn 25 13-61 U/L 07/22/2018 15:40 6768-6 1Alkaline phosphatase:CCnc:Pt:Ser/Plas:Qn 76 45-117 U/L 07/22/2018 15:40 1975-2 1Bilirubin:MCnc:Pt:Ser/Plas:Qn 0.3 0.2-1.0 mg/dl 07/22/2018 15:40 1Globulin 3.7 H 2.3-3.5 gm/dl 07/22/2018 15:40 1Calcium, Corrected 9.4 8.4-10.2 mg/dl 07/22/2018 15:40 Note: Various formulas exist for corrected serum calcium results, each yielding different values. This corrected result was based on the formula: Corrected Calcium=SerumCalcium + [0.8 * ( 4 - SerumAlbumin)] 1EGFR if >60 mL/min/1.73m^2 07/22/2018 15:40 1EGFR if Non- 57 mL/min/1.73m^2 07/22/2018 15:40 Note: Estimated Glomerular Filtration Rate (eGFR) Reference Intervals Decision Points for 18 years and older and average body mass: >=60 Does not exclude kidney disease. 30 - 59 Suggests moderate chronic kidney disease and indicates the need for further investigation including assessment of proteinuria and cardiovascular factors. < 30 Usually indicates a need for referral for assessment and management of chronic kidney failure. * Performing Lab Footnotes:* [address] [place] [address] [id number] - [address] [facility] [address] [place] [address] [facility] - : DIRECTOR IAN HOFFMAN Order: CORONARY RISK Specimen Source: BLOOD Body Site: INC Test Result Flag Range Unit Date 1Triglycerides 200 H 0-149 mg/dl 07/22/2018 15:40 Note: Trig. Interpretation Guide: Normal: < 150 mg/dl Borderline High: 150 - 199 mg/dl High: 200 - 499 mg/dl Very High: >=500 mg/dl 1Cholesterol 289 H 0-200 mg/dl 07/22/2018 15:40 1HDL 61 35-86 mg/dl 07/22/2018 15:40 66817-8 1Cholesterol.in LDL:MCnc:Pt:Ser/Plas:Qn:Direct assay 200 H 0-99 mg/dl 07/22/2018 15:40 Note: Direct LDL Intrepretations: Optimal: <100 mg/dl Suspect: 100 - 129 mg/dl Borderline: 130 - 159 mg/dl High: 160 - 189 mg/dl Very High: >190 mg/dl 1Risk Factor 4.7 H 0.0-4.4 07/22/2018 15:40 Note: Risk Factor Men Women Risk Factor 3.4 3.3 1/2 Average 5.0 4.4 Average 9.6 7.1 2X Average 24.0 11.0 3X Average 2089-1 1Cholesterol.in LDL:MCnc:Pt:Ser/Plas:Qn 40 20-50 mg/dl 07/22/2018 15:40 * Performing Lab Footnotes:* [address] [place] [address] - [id number] - [address] [facility] [address] [place] [address] [facility] - MD: DIRECTOR IAN HOFFMAN Order: T3 UPTAKE Specimen Source: BLOOD Body Site: LOINC Test Result Flag Range Unit Date 1T3 Uptake 37 30.0-39.0 %uptake 07/22/2018 15:40 * Performing Lab Footnotes:* [address] [place] [address] [id number] - [address] [place] [address] ANNA Castaneda MD: DIRECTOR IAN HOFFMAN Order: TSH ULTRA SENSITIVE Specimen Source: BLOOD Body Site: LOINC Test Result Flag Range Unit Date 1TSH 3.93 H 0.35-3.74 mIU/L 07/22/2018 15:40 * Performing Lab Footnotes:* [address] [place] [address] [id number] - [address] [place] [address] ANNA Castaneda MD: DIRECTOR IAN HOFFMAN Order: URIC ACID SERUM Specimen Source: BLOOD Body Site: LOINC Test Result Flag Range Unit Date 1Uric Acid 3 2.6-6.0 mg/dl 07/22/2018 15:40 * Performing Lab Footnotes:* [address] [place] [address] [id number] [place] [address] ANNA Castaneda MD: DIRECTOR IAN HOFFMAN Order: VITAMIN B12 Specimen Source: BLOOD Body Site: LOINC Test Result Flag Range Unit Date 1B12 441 193-986 pg/ml 07/22/2018 15:40 * Performing Lab Footnotes:* [address] [place] [address] - [id number] - [address] [facility] [address] [place] [address] [facility] - MD: DIRECTOR IAN HOFFMAN Vital Signs * No data in the system Advance Directives PT HAS NEITHER Directive Type Effective Date Guest Service Agent Notes Supporting Document Name Address Phone No Directive Type specified 08/02/2012 21:27 Not Specified Not Specified Not Specified None No Family History * Family History Unknown Plan of Care * No data in the system Procedures * No data in the system Encounters Date Code Diagnosis Status (ICD10) - 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
[2019-08-03 14:21] VITALS: BP 113/73
== END 2019-08-03 15:13 | disposition home or self-care (01) ==
LOC: ER 14:07
DX: M25.532 Pain in left wrist (principal); S63.502D Unspecified sprain of left wrist, subsequent encounter; W18.30XD Fall on same level, unspecified, subsequent encounter; Z85.42 Personal history of malignant neoplasm of other parts of uterus
CPT/HCPCS: 99282